=== PATIENT | male | born 1945 | race Caucasian/White ===

== ENCOUNTER → 2018-07-18 | Outpatient (REF) | payer MEDICARE ==
[2018-07-19 02:38] LABS: COMPLEMENT C3 125 MG/DL (90-180); COMPLEMENT C4 30 MG/DL (10-40)
[2018-07-23 00:06] LABS: ANCA-ATYPICAL <1:20 titer (Neg:<1:20); ANTI DOUBLE STRAND-DNA AB 3 IU/mL (0-9); CYTOPLASMIC NEUTROP AB ANCA-C <1:20 titer (Neg:<1:20); PERINUCLEAR AB ANCA-P <1:20 titer (Neg:<1:20)
[2018-07-25 11:27] LABS: URINE VOLUME RANDOM ML
[2018-07-25 11:28] LABS: UPEP INTERPRETATION NO M-SPIKE NOTED
== END ==
LOC: M LAB REF 17:33
PROVIDERS: ATTEND Internal Medicine Nephrology
DX: R80.9 Proteinuria, unspecified (principal)

== ENCOUNTER → 2019-09-18 | Outpatient (REF) | payer MEDICARE ==
[2019-09-20 15:09] LABS: PSA TOTAL 0.5 ng/mL (0.0-4.0)
== END ==
LOC: M LAB REF 13:12
PROVIDERS: ATTEND Nurse Practitioner Family
DX: R39.198 Other difficulties with micturition (principal)

== ENCOUNTER → 2020-01-18 | Outpatient (CLI) | payer MEDICARE ==
[~2020-01-18] MED LIST: AMIO200T PO; ASPI325T55 PO; CALC1CAP31 PO; CORE6.25 PO; COZA100T2 PO; GLIM4TAB5 PO; LASI40TA9 PO; LIPI20TA PO; MM S100C PO; NITR0.4S14 SL; PROTPAK PO; VITA500030 PO
== END ==
LOC: M LABSMTC 11:18
PROVIDERS: ATTEND Anesthesiology
DX: Z03.818 Encounter for observation for suspected exposure to other biological agents ruled out (principal)
CPT/HCPCS: C9803; U0003

== ENCOUNTER 2020-01-21 06:59 | Day surgery (SDC) | payer MEDICARE ==
[~2020-01-21] VITALS: Ht 180.3 cm; Wt 87.5 kg
[~2020-01-21 06:59] MED LIST changes: -AMIO200T PO; +AMIO200T3 PO
[2020-01-21] MEDS ORDERED: NS 1,000 ML IV ONE (07:00)
[2020-01-21] MEDS ORDERED: LIDOCAINE 2% 100MG/5ML SDV (FOR ANES.) As Ordered ONE (07:10)
[2020-01-21] MEDS ORDERED: propofoL 200 MG/20 ML VIAL As Ordered ONE (07:11)
--- NOTE | 2020-01-21 09:03 | ROOR ---
Patient Name: Weston Hurd Procedure Date: 01/21/2020 8:10 AM Date of : 1945 Age: 74 Room: [facility] Gender: Male Note Status: Finalized Procedure: Colonoscopy Indications: Hematochezia Providers: Avtar Roberson MD Referring MD: Serafin Hubbard MD Requesting Provider: Medicines: Monitored Anesthesia Care Complications: No immediate complications. Procedure: Pre-Anesthesia Assessment: - Prior to the procedure, a History and Physical was performed, and patient medications and allergies were reviewed. The patient is competent. The risks and benefits of the procedure and the sedation options and risks were discussed with the patient. All questions were answered and informed consent was obtained. Patient identification and proposed procedure were verified by the physician, the nurse and the anesthesiologist in the procedure room. Mental Status Examination: alert and oriented. Respiratory Examination: clear to auscultation. CV Examination: normal. Prophylactic Antibiotics: The patient does not require prophylactic antibiotics. Prior Anticoagulants: The patient has taken no previous anticoagulant or antiplatelet agents. After reviewing the risks and benefits, the patient was deemed in satisfactory condition to undergo the procedure. The anesthesia plan was to use monitored anesthesia care (MAC). Immediately prior to administration of medications, the patient was re-assessed for adequacy to receive sedatives. The heart rate, respiratory rate, oxygen saturations, blood pressure, adequacy of pulmonary ventilation, and response to care were monitored throughout the procedure. The physical status of the patient was re-assessed after the procedure. The Colonoscope was introduced through the anus and advanced to the terminal ileum, with identification of the appendiceal orifice and IC valve. The colonoscopy was performed without difficulty. The patient tolerated the procedure well. The quality of the bowel preparation was good. The terminal ileum, ileocecal valve, appendiceal orifice, and rectum were photographed. Scope insertion time was 2 minutes. Scope withdrawal time was 10 minutes. The total duration of the procedure was 14 minutes. Findings: The perianal and digital rectal examinations were normal. The terminal ileum appeared normal. Two sessile polyps were found in the transverse colon. The polyps were 5 to 10 mm in size. These polyps were removed with a hot snare. Resection and retrieval were complete. Verification of patient identification for the specimen was done by the physician and nurse using the patient's name, date and medical record number. Estimated blood loss was minimal. A 25 mm polyp was found in the recto-sigmoid colon. The polyp was semi-pedunculated. The polyp was removed with a hot snare. Resection and retrieval were complete. To close a defect after polypectomy, two hemostatic clips were successfully placed. There was no bleeding at the end of the procedure. Multiple small and large-mouthed diverticula were found from sigmoid to descending colon. There was no evidence of diverticular bleeding. External and internal hemorrhoids were found during retroflexion. The hemorrhoids were medium-sized. Impression: - The examined portion of the ileum was normal. - Two 5 to 10 mm polyps in the transverse colon, removed with a hot snare. Resected and retrieved. - One 25 mm polyp at the recto-sigmoid colon, removed with a hot snare. Resected and retrieved. Clips were placed. - Moderate diverticulosis from sigmoid to descending colon. There was no evidence of diverticular bleeding. - External and internal hemorrhoids. Recommendation: - Patient has a contact number available for emergencies. The signs and symptoms of potential delayed complications were discussed with the patient. Return to normal activities tomorrow. Written discharge instructions were provided to the patient. - High fiber diet. - Continue present medications. - Await pathology results. - Repeat colonoscopy in 1 year for surveillance based on pathology results. - Telephone GI clinic for pathology results in 2 weeks. - Miralax 1 capful (17 grams) in 8 ounces of water PO daily for 5 days. - Return to primary care physician. Avtar Roberson MD Avtar Roberson MD 01/21/2020 9:03:11 AM Electronically signed by Avtar Roberson MD Number of Addenda: 0 Note Initiated On: 01/21/2020 8:10 AM Estimated Blood Loss: Estimated blood loss was minimal.
[2020-01-21 09:50] VITALS: BP 140/94
== END 2020-01-21 12:50 | disposition home or self-care (01) ==
LOC: M OPP 06:59
PROVIDERS: ATTEND Internal Medicine Gastroenterology
DX: D12.3 Benign neoplasm of transverse colon (principal); D12.7 Benign neoplasm of rectosigmoid junction; K57.30 Diverticulosis of large intestine without perforation or abscess without bleeding; K64.8 Other hemorrhoids; I48.91 Unspecified atrial fibrillation; I51.9 Heart disease, unspecified; Z79.82 Long term (current) use of aspirin; Z79.899 Other long term (current) drug therapy; Z88.8 Allergy status to other drugs, medicaments and biological substances; Z95.5 Presence of coronary angioplasty implant and graft; Z95.0 Presence of cardiac pacemaker

== ENCOUNTER → 2020-07-15 | Outpatient (CLI) | payer MEDICARE | LOC: M LABSMTC 12:12 | PROVIDERS: ATTEND Anesthesiology | DX: Z01.812 Encounter for preprocedural laboratory examination (principal); Z20.828 Contact with and (suspected) exposure to other viral communicable diseases ==

== ENCOUNTER 2020-07-20 06:48 | Day surgery (SDC) | payer MEDICARE ==
[~2020-07-20] VITALS: Ht 180.3 cm; Wt 90.7 kg
[2020-07-20] MEDS ORDERED: NS 1,000 ML IV ONE (07:00)
[2020-07-20] MEDS ORDERED: LIDOCAINE 2% 100MG/5ML SDV (FOR ANES.) As Ordered ONE (07:38)
[2020-07-20] MEDS ORDERED: propofoL 500 MG/50 ML VIAL As Ordered ONE (07:38)
--- NOTE | 2020-07-20 07:55 | ROOR ---
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 Procedure: Pre-Anesthesia Assessment: - Prior to the procedure, a History and Physical was performed, and patient medications and allergies were reviewed. The patient is competent. The risks and benefits of the procedure and the sedation options and risks were discussed with the patient. All questions were answered and informed consent was obtained. Patient identification and proposed procedure were verified by the physician, the nurse and the anesthesiologist in the procedure room. Mental Status Examination: alert and oriented. Airway Examination: normal oropharyngeal airway and neck mobility. Respiratory Examination: clear to auscultation. CV Examination: normal. Prophylactic Antibiotics: The patient does not require prophylactic antibiotics. Prior Anticoagulants: The patient has taken no previous anticoagulant or antiplatelet agents except for aspirin. ASA Grade Assessment: III - A patient with severe systemic disease. After reviewing the risks and benefits, the patient was deemed in satisfactory condition to undergo the procedure. The anesthesia plan was to use monitored anesthesia care (MAC). Immediately prior to administration of medications, the patient was re-assessed for adequacy to receive sedatives. The heart rate, respiratory rate, oxygen saturations, blood pressure, adequacy of pulmonary ventilation, and response to care were monitored throughout the procedure. The physical status of the patient was re-assessed after the procedure. The Colonoscope was introduced through the anus and advanced to the splenic flexure. The flexible sigmoidoscopy was accomplished without difficulty. The patient tolerated the procedure well. Scope insertion time was 2 minutes. Scope withdrawal time was 3 minutes. The total duration of the procedure was 8 minutes. Findings: The perianal and digital rectal examinations were normal. A 10 mm post polypectomy scar was found in the sigmoid colon. The scar tissue was healthy in appearance. There was no evidence of the previous polyp. A 3 mm polyp was found in the descending colon. The polyp was sessile. The polyp was removed with a jumbo cold forceps. Resection and retrieval were complete. Verification of patient identification for the specimen was done by the physician and nurse using the patient's name, date and medical record number. Estimated blood loss was minimal. Non-bleeding external and internal hemorrhoids were found during retroflexion. The hemorrhoids were large. Impression: - Post-polypectomy scar in the sigmoid colon. - One 3 mm polyp in the descending colon, removed with a jumbo cold forceps. Resected and retrieved. - Non-bleeding external and internal hemorrhoids. Recommendation: - The patient will be observed post-procedure, until all discharge criteria are met. - Patient has a contact number available for emergencies. The signs and symptoms of potential delayed complications were discussed with the patient. Return to normal activities tomorrow. Written discharge instructions were provided to the patient. - High fiber diet. - Continue present medications. - Continue aspirin at prior dose. Refer to primary physician for further adjustment of therapy. - Await pathology results. - Perform a colonoscopy in 1 year. - Return to GI clinic in 1 year. - Return to primary care physician. Procedure Code(s): --- Professional --- 95559, Sigmoidoscopy, flexible; with biopsy, single or multiple Diagnosis Code(s): --- Professional --- Z98.890, Other specified postprocedural states K63.5, Polyp of colon K64.8, Other hemorrhoids D01.0, Carcinoma in situ of colon CPT copyright 2019 [employer]. All rights reserved. The codes documented in this report are preliminary and upon data center manager review may be revised to meet current compliance requirements. Avtar Roberson MD Avtar Roberson MD 07/20/2020 7:55:25 AM Electronically signed by Avtar Roberson MD Number of Addenda: 0 Note Initiated On: 07/20/2020 7:29 AM Estimated Blood Loss: Estimated blood loss: none.
[2020-07-20 08:37] VITALS: BP 157/94
== END 2020-07-20 08:37 | disposition home or self-care (01) ==
LOC: M OPP 06:48
PROVIDERS: ATTEND Internal Medicine Gastroenterology
DX: D01.0 Carcinoma in situ of colon (principal); Z98.890 Other specified postprocedural states; K63.5 Polyp of colon; K64.8 Other hemorrhoids

== ENCOUNTER → 2021-01-11 | Outpatient (REF) | payer MEDICARE | LOC: M LAB REF 17:18 | PROVIDERS: ATTEND Nurse Practitioner Family | DX: N18.32 Chronic kidney disease, stage 3b (principal) ==

== ENCOUNTER → 2021-02-02 | Outpatient (REF) | payer MEDICARE ==
[~2021-02-02] MED LIST changes: +HYDR-3910; +NATE120T4
== END ==
LOC: M LAB REF 16:57
PROVIDERS: ATTEND Nurse Practitioner Family
DX: E83.42 Hypomagnesemia (principal)

== ENCOUNTER → 2021-09-29 | Outpatient (CLI) | payer MEDICARE ==
[~2021-09-29] MED LIST changes: -AMIO200T3 PO; +AMIO200T49 PO; +CARV25TA PO; +FURO40TA2 PO; -HYDR-3910; +HYDR-3910 PO; +LEVO100T5 PO; +MECL-86 PO; -NATE120T4; +NATE120T4 PO
== END ==
LOC: M LABSMTC 10:55
PROVIDERS: ATTEND Anesthesiology
DX: Z01.812 Encounter for preprocedural laboratory examination (principal); Z20.822 Contact with and (suspected) exposure to COVID-19

== ENCOUNTER 2021-10-04 08:37 | Day surgery (SDC) | payer MEDICARE ==
[~2021-10-04] VITALS: Ht 180.3 cm; Wt 92.5 kg
[~2021-10-04 08:37] MED LIST changes: +LIDOCAINE 2% 100MG/5ML SDV (FOR ANES.) As Ordered ONE; +propofoL 200 MG/20 ML VIAL As Ordered ONE
[2021-10-04] MEDS ORDERED: NS 1,000 ML IV ONE (09:05)
[2021-10-04 09:59] VITALS: BP 133/74
== END 2021-10-04 13:40 | disposition home or self-care (01) ==
LOC: M OPP 08:37
PROVIDERS: ATTEND Internal Medicine Gastroenterology
DX: Z12.11 Encounter for screening for malignant neoplasm of colon (principal); Z86.010 Personal history of colon polyps; D12.6 Benign neoplasm of colon, unspecified; K57.30 Diverticulosis of large intestine without perforation or abscess without bleeding; K64.8 Other hemorrhoids; I10 Essential (primary) hypertension; E78.5 Hyperlipidemia, unspecified; E11.9 Type 2 diabetes mellitus without complications; E03.9 Hypothyroidism, unspecified; K21.9 Gastro-esophageal reflux disease without esophagitis; M19.90 Unspecified osteoarthritis, unspecified site; I48.91 Unspecified atrial fibrillation; R42 Dizziness and giddiness; Z95.0 Presence of cardiac pacemaker; Z88.8 Allergy status to other drugs, medicaments and biological substances; Z79.82 Long term (current) use of aspirin; Z79.84 Long term (current) use of oral hypoglycemic drugs; Z79.899 Other long term (current) drug therapy; Z82.49 Family history of ischemic heart disease and other diseases of the circulatory system

== ENCOUNTER → 2021-10-27 | Outpatient (CLI) | payer MEDICARE ==
[~2021-10-27] MED LIST changes: -LIDOCAINE 2% 100MG/5ML SDV (FOR ANES.) As Ordered ONE; -propofoL 200 MG/20 ML VIAL As Ordered ONE
== END ==
LOC: M LABSMTC 10:36
PROVIDERS: ATTEND Anesthesiology
DX: Z01.812 Encounter for preprocedural laboratory examination (principal); Z20.822 Contact with and (suspected) exposure to COVID-19

== ENCOUNTER → 2021-12-15 | Outpatient (CLI) | payer MEDICARE ==
[~2021-12-15] MED LIST changes: +ATOR40TA75 PO
== END ==
LOC: M LABSMTC 09:04
PROVIDERS: ATTEND Anesthesiology
DX: Z11.52 Encounter for screening for COVID-19 (principal); Z20.822 Contact with and (suspected) exposure to COVID-19

== ENCOUNTER 2021-12-20 13:39 | Day surgery (SDC) | payer MEDICARE ==
[~2021-12-20] VITALS: Ht 180.3 cm; Wt 91.6 kg
[~2021-12-20 13:39] MED LIST changes: +LR 1,000 ML IV SCH
[2021-12-20] MEDS ORDERED: ROCURONIUM BROMIDE 50 MG/5 ML VIAL As Ordered ONE (13:44)
[2021-12-20] MEDS ORDERED: LIDOCAINE 2% 100MG/5ML SDV (FOR ANES.) As Ordered ONE (13:44)
[2021-12-20] MEDS ORDERED: propofoL 200 MG/20 ML VIAL As Ordered ONE (13:44)
[2021-12-20] MEDS ORDERED: MIDAZOLAM INJ 2MG/2ML VIAL (J2250 PER 1MG) As Ordered ONE (13:44)
[2021-12-20] MEDS ORDERED: fentaNYL 250 MCG/5 ML INJECTION As Ordered ONE (13:44)
[2021-12-20] MEDS ORDERED: LR 1,000 ML IV SCH (13:45)
[2021-12-20] MEDS ORDERED: BUPIVACAINE HCL 0.25% 30ML VIAL As Ordered ONE (14:56)
[2021-12-20] MEDS ORDERED: HYDR-3715 PO (14:57)
[2021-12-20] MEDS ORDERED: dexameTHASONE 4 MG/ML 1ML VIAL (J1100 PER 1MG) As Ordered ONE (15:24)
[2021-12-20] MEDS ORDERED: ACETAMINOPHEN 1000MG 100ML IV BTL (OFIRMEV) (J0131 PER 10MG) As Ordered ONE (15:45)
[2021-12-20] MEDS ORDERED: ONDANSETRON 4MG/2ML VIAL As Ordered ONE (15:46)
[2021-12-20] MEDS ORDERED: HYDROmorphone HCL 2MG/ML 1ML VIAL As Ordered ONE (15:54)
[2021-12-20] MEDS ORDERED: PHENYLephrine 500MCG 5ML (100MCG/ML) SYRINGE As Ordered ONE (16:15)
[2021-12-20] MEDS ORDERED: fentaNYL 100 MCG/2 ML INJECTION IV PRN (17:25)
[2021-12-20] MEDS ORDERED: MORPHINE 2 MG/ML 1ML VIAL IV PRN (17:25)
[2021-12-20] MEDS ORDERED: ONDANSETRON 4MG/2ML VIAL IV PRN (17:25)
[2021-12-20] MEDS ORDERED: oxyCODONE 5MG TAB PO PRN (17:25)
[2021-12-20] MEDS ORDERED: NORCO, ANEXSIA 5/325MG TABLET (HYDROcodone/ACETAMINOPHEN) PO PRN (17:35)
[2021-12-20] MEDS ORDERED: ACETAMINOPHEN TAB 650MG DOSE (2X325MG) PO PRN (17:35)
[2021-12-20 19:40] VITALS: BP 155/79
== END 2021-12-20 19:45 | disposition home or self-care (01) ==
LOC: M SDC 13:39
PROVIDERS: ATTEND Surgery
DX: K80.10 Calculus of gallbladder with chronic cholecystitis without obstruction (principal); I48.91 Unspecified atrial fibrillation; Z98.61 Coronary angioplasty status; Z95.810 Presence of automatic (implantable) cardiac defibrillator; Z95.0 Presence of cardiac pacemaker; E11.9 Type 2 diabetes mellitus without complications; E78.5 Hyperlipidemia, unspecified; I50.9 Heart failure, unspecified; Z79.82 Long term (current) use of aspirin; Z79.899 Other long term (current) drug therapy; Z88.8 Allergy status to other drugs, medicaments and biological substances; Z79.84 Long term (current) use of oral hypoglycemic drugs; K21.9 Gastro-esophageal reflux disease without esophagitis; E03.9 Hypothyroidism, unspecified
CPT/HCPCS: 47562; 88304; J0131; J1100; J1170; J2250; J2370; J2405; J3010; S2900

== ENCOUNTER → 2023-01-25 | Outpatient (REF) | payer MEDICARE ==
[~2023-01-25] MED LIST changes: +CORE25TA PO; -COZA100T2 PO; +COZA100T3 PO; +HYDR-3715 PO; -LR 1,000 ML IV SCH; +NITR0.4D6 TOP
[2023-01-25 18:09] LABS: CREATININE,RANDOM URINE 122.2 MG/DL
[2023-01-25 18:13] LABS: TOTAL PROTEIN,RANDOM URINE 189.1 MG/DL (0.0-14.0)
== END ==
LOC: M LAB REF 17:00
PROVIDERS: ATTEND Nurse Practitioner Family
DX: R80.9 Proteinuria, unspecified (principal)

== ENCOUNTER → 2023-09-26 | Outpatient (CLI) | payer MEDICARE ==
[~2023-09-26] MED LIST changes: +AMIO200T49; +CLOP75TA2; -COZA100T3 PO; +ENAL1TAB50; +ENTR1TAB4; -HYDR-3910 PO; +HYDR25TA87 PO; +JARD1TAB; +LEVO137T2; +LOSA-530 PO; +TORS20TA2; +XARE20TA
== END ==
LOC: M WHC 11:06
PROVIDERS: ATTEND Specialist
DX: N62 Hypertrophy of breast (principal)
CPT/HCPCS: 76641; 77066; G0279

== ENCOUNTER → 2025-06-23 | Outpatient (CLI) | payer MEDICARE ==
[~2025-06-23] MED LIST changes: -AMIO200T49; -AMIO200T49 PO; +AMIO200T54; +AMIO200T54 PO; +BASA100I; +BISO5TAB14; +LANTINJ4
== END ==
LOC: M RAD 08:55
PROVIDERS: ATTEND Student in an Organized Health Care Education/Training Program
DX: D69.6 Thrombocytopenia, unspecified (principal)